=== PATIENT | male | born 1975 | race Caucasian/White ===

== ENCOUNTER 2016-07-03 12:28 | Emergency (ER) | payer OTHER ==
[~2016-07-03] VITALS: Ht 177.8 cm; Wt 83.0 kg
[~2016-07-03 12:28] MED LIST: ACCUTES19 XX; GLUC1KIT SQ; LANTUS2P SC; NOVOLOGP2 SQ
[2016-07-03 12:42] VITALS: BP 150/96; PULSE 104; RESP 18; TEMP 99.9; O2SAT 97
[2016-07-03] MEDS ORDERED: LANTUS2P SQ (12:50)
[2016-07-03] MEDS ORDERED: SODIUM CHLOR 0.9% 1000 ML INJ 1,000 ML IV ONE (13:00)
--- NOTE | 2016-07-03 13:02 | PD ---
HPI Chief Complaint: Diabetic Time Seen by Provider: 12:51 Travel History International Travel<30 days: No Contact w/Intl Traveler<30days: No Traveled to known affect area: No History of Present Illness HPI 41-year-old male complains of lightheadedness, abdominal cramping, nausea vomiting. Patient states the symptoms started several days ago. Patient has history of diabetes. Patient states that she has not been checking his blood sugar recently. Patient went to urgent care Center this morning and blood sugar was found to be 555. Patient was referred to ED for evaluation. Patient denies any headache. Patient denies any chest pain or short as of breath. Patient denies any fever chills. Patient complains of urinary frequency but no dysuria. Patient denies any diarrhea. Patient states that abdominal cramping is mild intermittent discomfort to the abdomen. Patient denies any pain radiation. PFSH Past Medical History Cerebral Palsy: Yes (MILD) High Cholesterol: Yes Diabetes: Yes Patient Takes Glucophage: No Diminished Hearing: No Immunizations Current: No Social History Alcohol Use: No Tobacco Use: No Substance Use: No Allergies-Medications (Allergen,Severity, Reaction): Coded Allergies: Albiglutide (Verified Allergy, Severe, 07/03/16) Tongue swelling Penicillin (Verified Allergy, Mild, Hives, 07/03/16) Reported Meds & Prescriptions Reported Meds & Active Scripts Active Reported Lantus Inj (Insulin Glargine) 1,000 Unit/10 Ml Vial 40 Units SQ HS Review of Systems General / Constitutional: No: Fever Eyes: No: Visual changes HENT: Positive: Lightheadedness, No: Headaches Cardiovascular: No: Chest Pain or Discomfort Respiratory: No: Shortness of Breath Gastrointestinal: Positive: Nausea, Vomiting, Abdominal Pain Genitourinary: No: Dysuria Musculoskeletal: No: Pain Skin: No Rash Neurologic: No: Weakness Psychiatric: No: Depression Endocrine: No: Polydipsia Hematologic/Lymphatic: No: Easy Bruising Physical Exam Narrative GENERAL: Well-nourished, well-developed patient. SKIN: Focused skin assessment warm/dry. HEAD: Normocephalic. EYES: No scleral icterus. No injection or drainage. NECK: Supple, trachea midline. No JVD or lymphadenopathy. CARDIOVASCULAR: Regular rate and rhythm without murmurs, gallops, or rubs. RESPIRATORY: Breath sounds equal bilaterally. No accessory muscle use. GASTROINTESTINAL: Abdomen soft, non-tender, nondistended. MUSCULOSKELETAL: No cyanosis, or edema. BACK: Nontender without obvious deformity. No CVA tenderness. Neurologic exam normal. Data Data Last Documented VS Vital Signs Date Time Temp Pulse Resp B/P Pulse Ox O2 Delivery O2 Flow Rate FiO2 07/03/16 14:52 92 18 142/89 98 Room Air 07/03/16 12:42 99.9 Orders Complete Blood Count With Diff (07/03/16 12:58) Comprehensive Metabolic Panel (07/03/16 12:58) Magnesium (Mg) (07/03/16 12:58) Beta Hydroxybutyrate (Acetone) (07/03/16 12:58) Phosphorus (Po4) (07/03/16 12:58) Iv Access Insert/Monitor (07/03/16 12:58) Ecg Monitoring (07/03/16 12:58) Oximetry (07/03/16 12:58) Sodium Chlor 0.9% 1000 Ml Inj (Ns 1000 M (07/03/16 13:00) Insulin Human Regular Inj (Novolin R Inj (07/03/16 14:00) Potassium Chloride (Kcl) (07/03/16 14:00) Labs Laboratory Tests Test 07/03/16 13:15 White Blood Count 10.6 TH/MM3 Red Blood Count 4.56 MIL/MM3 Hemoglobin 13.8 GM/DL Hematocrit 40.6 % Mean Corpuscular Volume 89.0 FL Mean Corpuscular Hemoglobin 30.2 PG Mean Corpuscular Hemoglobin 33.9 % Concent Red Cell Distribution Width 12.0 % Platelet Count 193 TH/MM3 Mean Platelet Volume 8.9 FL Neutrophils (%) (Auto) 86.6 % Lymphocytes (%) (Auto) 6.2 % Monocytes (%) (Auto) 6.8 % Eosinophils (%) (Auto) 0.1 % Basophils (%) (Auto) 0.3 % Neutrophils # (Auto) 9.2 TH/MM3 Lymphocytes # (Auto) 0.7 TH/MM3 Monocytes # (Auto) 0.7 TH/MM3 Eosinophils # (Auto) 0.0 TH/MM3 Basophils # (Auto) 0.0 TH/MM3 CBC Comment DIFF FINAL Differential Comment Sodium Level 130 MEQ/L Potassium Level 4.1 MEQ/L Chloride Level 92 MEQ/L Carbon Dioxide Level 25.5 MEQ/L Anion Gap 13 MEQ/L Blood Urea Nitrogen 15 MG/DL Creatinine 1.30 MG/DL Estimat Glomerular Filtration 60 ML/MIN Rate Random Glucose 591 MG/DL Calcium Level 8.4 MG/DL Phosphorus Level 3.2 MG/DL Magnesium Level 2.2 MG/DL Total Bilirubin 1.5 MG/DL Aspartate Amino Transf 19 U/L (AST/SGOT) Alanine Aminotransferase 26 U/L (ALT/SGPT) Alkaline Phosphatase 206 U/L Total Protein 7.5 GM/DL Albumin 3.0 GM/DL B-Hydroxybutyrate 1.13 MMOL/L MDM Medical Decision Making Medical Screen Exam Complete: Yes Emergency Medical Condition: Yes Interpretation(s) 1459 PM. CBC within normal limit. WBC 10.6. 86 neutrophil. Sodium 130. Glucose 591. Calcium 8.4. Alkaline phosphatase 206. Bicarbonate 25.5. Beta hydroxybutyrate 1.13. Differential Diagnosis Differential diagnosis including hyperglycemia, DKA Narrative Course 41-year-old male with abdominal cramping and nausea vomiting and lightheadedness. History of diabetes and has elevated blood sugar. Normal saline solution 1 L IV bolus. Novolin R, 8 units IV given. KCl 20 mEq by mouth given. 1526 PM. Accu-Chek blood sugar 367. Diagnosis Primary Impression: Hyperglycemia Additional Impression: Hyponatremia Patient Instructions: General Instructions Additional Instructions: Accu-Chek blood sugar 4 times a day and cover with sliding scale. Follow-up with personal physician. Return if persistent elevated blood sugar or worse. Med/Other Pt SpecificInfo: Prescription(s) given Scripts Ondansetron Odt (Zofran Odt)4 Mg Tab4 Mg SL Q6HR PRN (Nausea/Vomiting) #10 TAB Prov:Wilberto Horner MD 07/03/16 Disposition: 01 DISCHARGE HOME Condition: Stable Wilberto Horner MD Jul 03, 2016 13:02
[2016-07-03 13:22] VITALS: BP 138/96; PULSE 103; RESP 18; O2SAT 97
[2016-07-03 13:29] LABS: AUTOMATED NEUTROPHIL # 9.2 TH/MM3 (1.8-7.7); BASOPHIL % 0.3 % (0.0-2.0); EOSINOPHIL % 0.1 % (0.0-4.0); HEMATOCRIT 40.6 % (39.0-51.0); HEMO FLAGS DIFF FINAL; LYMPH % 6.2 % (9.0-44.0); LYMPHOCYTE # 0.7 TH/MM3 (1.0-4.8); MEAN CORPUSCULAR HEMOGLOBIN 30.2 PG (27.0-34.0); MEAN CORPUSCULAR HGB CONC 33.9 % (32.0-36.0); MONO % 6.8 % (0.0-8.0); NEUT % 86.6 % (16.0-70.0); PLATELET COUNT 193 TH/MM3 (150-450); RED BLOOD COUNT 4.56 MIL/MM3 (4.50-5.90); WHITE BLOOD COUNT 10.6 TH/MM3 (4.0-11.0)
[2016-07-03 13:45] LABS: CHLORIDE 92 MEQ/L (98-107); POTASSIUM 4.1 MEQ/L (3.5-5.1); SODIUM (NA) 130 MEQ/L (136-145)
[2016-07-03 13:49] LABS: ANION GAP 13 MEQ/L (5-15); BICARBONATE 25.5 MEQ/L (21.0-32.0); MAGNESIUM 2.2 MG/DL (1.5-2.5)
[2016-07-03 13:50] LABS: BLOOD UREA NITROGEN 15 MG/DL (7-18)
[2016-07-03 13:52] LABS: ALT (GPT) 26 U/L (12-78)
[2016-07-03 13:53] LABS: AST (GOT) 19 U/L (15-37); GLOMERULAR FILTRATION RATE 60 ML/MIN (>89)
[2016-07-03 13:54] LABS: TOTAL BILIRUBIN ADULT 1.5 MG/DL (0.2-1.0)
[2016-07-03] MEDS ORDERED: POTASSIUM CHLORIDE 20 MEQ CONTROLLED RELEASE TAB PO ONE (14:00)
[2016-07-03] MEDS ORDERED: INSULIN HUMAN REGULAR 1,000 UNITS/10 ML VIAL IV PUSH ONE (14:00)
[2016-07-03 14:47] LABS: ALKALINE PHOSPHATASE 206 U/L (45-117)
[2016-07-03 14:48] LABS: BETA-HYDROXYBUTYRATE 1.13 MMOL/L (0.00-0.39)
[2016-07-03 14:52] VITALS: BP 142/89; PULSE 92; RESP 18; O2SAT 98
[2016-07-03] MEDS ORDERED: ZOFR4TAB3 SL (15:27)
== END 2016-07-03 15:45 | disposition home or self-care (01) ==
LOC: PHED 12:28
DX: E11.65 Type 2 diabetes mellitus with hyperglycemia (principal); E87.1 Hypo-osmolality and hyponatremia; R11.2 Nausea with vomiting, unspecified; R42 Dizziness and giddiness; Z79.4 Long term (current) use of insulin; G80.9 Cerebral palsy, unspecified; E78.00 Pure hypercholesterolemia, unspecified
CPT/HCPCS: 80053; 82010; 83735; 84100; 85025; 96361; 96374; 99285; J1815; J7030

== ENCOUNTER 2016-07-18 23:11 | Emergency (ER) | payer OTHER ==
[~2016-07-18] VITALS: Ht 175.3 cm; Wt 84.0 kg
[~2016-07-18 23:11] MED LIST changes: -ACCUTES19 XX; -GLUC1KIT SQ; -LANTUS2P SC; +LANTUS2P SQ; -NOVOLOGP2 SQ; +ZOFR4TAB3 SL
[2016-07-18 23:26] VITALS: BP 138/97; PULSE 99; RESP 16; TEMP 99.2; O2SAT 99
== END 2016-07-19 01:23 | disposition left against medical advice (07) ==
LOC: PHED 23:11
DX: K64.9 Unspecified hemorrhoids (principal)
CPT/HCPCS: 99281

== ENCOUNTER 2017-01-27 23:44 | Emergency (ER) | payer OTHER ==
[~2017-01-27] VITALS: Ht 177.8 cm; Wt 85.2 kg
[2017-01-27 23:49] VITALS: BP 182/103; PULSE 103; RESP 18; TEMP 98.2; O2SAT 98
[2017-01-28] MEDS ORDERED: HUMALOG SQ (00:04)
[2017-01-28] MEDS ORDERED: PROC1CRE2 RECTAL (00:23)
--- NOTE | 2017-01-28 00:23 | PD ---
HPI Chief Complaint: Skin Problem Time Seen by Provider: 00:09 Travel History International Travel<30 days: No Contact w/Intl Traveler<30days: No History of Present Illness HPI This is a 41-year-old male who presents to the emergency department with itching around his rectum for 3 days, constant, moderate severity, worse when he is resting, improved when he walks around. He doesn't have any bleeding or pain in his rectum. He denies any fevers or chills. He hasn't taken any of his insulin today or yesterday. PFSH Past Medical History Cerebral Palsy: Yes (MILD) High Cholesterol: Yes Diabetes: Yes Patient Takes Glucophage: No Diminished Hearing: No Immunizations Current: No Past Surgical History Genitourinary Surgery: Yes (TURP 07/17) Social History Alcohol Use: No Tobacco Use: No Substance Use: No Allergies-Medications (Allergen,Severity, Reaction): Coded Allergies: albiglutide (Unverified Allergy, Severe, 01/28/17) Tongue swelling penicillin G (Unverified Allergy, Mild, Hives, 01/28/17) Reported Meds & Prescriptions Reported Meds & Active Scripts Active Reported Humalog Inj (Insulin Human Lispro) 1,000 Unit/10 Ml Vial 1-9 Units SQ ACHS Max dose at bedtime:( )units; sugars< 70,(0)units; sugars 150-199,(1)unit; sugars 200-249,(3)units; sugars 250-299,(5)units; sugars 300-349,(7)units; sugars more than 349,(9)units. Lantus Inj (Insulin Glargine) 1,000 Unit/10 Ml Vial 40 Units SQ HS Review of Systems General / Constitutional: No: Fever, Chills Gastrointestinal: No: Nausea, Vomiting Physical Exam Narrative GENERAL: Well-appearing, no acute distress, nontoxic SKIN: Warm and dry. HEAD: Atraumatic. Normocephalic. ENT: No nasal bleeding or discharge. Moist mucous membranes Rectal: Erythema and some excoriation around the rectum with dark venous firm bulge at 7:00 consistent with an external hemorrhoid MUSCULOSKELETAL: No obvious deformities. No clubbing. No cyanosis. No edema. NEUROLOGICAL: Awake and alert. No obvious cranial nerve deficits. Motor grossly within normal limits. Normal speech. PSYCHIATRIC: Appropriate mood and affect; insight and judgment normal. Data Data Last Documented VS Vital Signs Date Time Temp Pulse Resp B/P (MAP) Pulse Ox O2 Delivery O2 Flow Rate FiO2 01/27/17 23:49 98.2 103 18 182/103 (129) 98 Orders Orders Hydrocortisone 1% Cream (Hydrocortisone (01/28/17 00:30) MDM Medical Decision Making Medical Screen Exam Complete: Yes Emergency Medical Condition: Yes Differential Diagnosis External hemorrhoids, internal hemorrhoids, fungal infection Narrative Course This is a 41-year-old male who presents to the emergency department with itching around his rectum. He appears to have an early external hemorrhoid on exam. I think he would benefit from hydrocortisone cream. Incidentally his blood sugar was checked and it is 460. I offered the patient IV fluids and insulin that he would prefer just to go home and uses insulin this evening which I think is reasonable as he is asymptomatic. Patient will be discharged home. Diagnosis Primary Impression: External hemorrhoid Patient Instructions: General Instructions Additional Instructions: If you develop vomiting, lightheadedness, dizziness or abdominal pain return to the emergency room. Med/Other Pt SpecificInfo: Prescription(s) given Scripts Hydrocortisone Rectal 1% (Proctocort Rectal 1%) 1% Cream 1 APPLIC RECTAL Q6H Y for PAIN/INFLAMMATION, #1 TUBE 0 Refills Prov: Katie Puentes MD 01/28/17 Disposition: 01 DISCHARGE HOME Condition: Stable Katie Puentes MD Jan 28, 2017 00:23
[2017-01-28] MEDS ORDERED: INSULIN ASPART 1,000 UNITS/10 ML VIAL SQ ONE (00:30)
[2017-01-28] MEDS ORDERED: HYDROCORTISONE 1% CREAM 30 GM TOPICAL ONE (00:30)
== END 2017-01-28 01:06 | disposition home or self-care (01) ==
LOC: PHED 23:44
DX: K64.4 Residual hemorrhoidal skin tags (principal); G80.9 Cerebral palsy, unspecified; E78.00 Pure hypercholesterolemia, unspecified; E11.9 Type 2 diabetes mellitus without complications; Z79.4 Long term (current) use of insulin; Z88.0 Allergy status to penicillin; Z88.8 Allergy status to other drugs, medicaments and biological substances
CPT/HCPCS: 96372; 99284; J1815